=== PATIENT | female | born 1980 | race Caucasian/White ===

== ENCOUNTER 2019-03-08 17:43 | Observation (INO) | payer OTHER ==
--- NOTE | 2019-03-08 18:09 | ED ---
Neurological HPI - HPI Summary HPI Summary: Pt is a 38 y/o F presenting to the ED with a chief complaint of a neurological deficit. She states she first experienced sx around 1500 when she noticed her vision was blurry and she was seeing spots. This subsided, but she then could not understand what people were saying on TV, noticed that she couldnt spell when she was trying to text, and her words were not coming out properly. This confusion lasted for approximately 1 hour, and was accompanied by extreme anxiety. Her called EMS from work, went home, and they arrived and took approximately an hour or more to get to the ED. In the ambulance on the way here , she developed a burning headache behind the R eye that is still present. She denies any weakness or numbness during the entire event. She has hx of migraines, but not ones that have developed or presented like this. - History of Current Complaint Chief Complaint: EDNeurologicalDeficit Stated Complaint: WEAKNESS PER FAMILY Time Seen by Provider: 03/08/19 17:53 Last Known Well Date: 1449 Hx Obtained From: Patient Onset/Duration: Sudden Onset, Started hours ago, Still Present Timing: Constant Onset Severity: Moderate Current Severity: Moderate Headache Location: Diffuse (Right) Pain Intensity: 6 Pain Scale Used: 0-10 Numeric Character: Impaired Speech, Confusion, Visual Changes Aggravating: Unknown Alleviating: Unknown Associated Signs and Symptoms: Positive: Visual Changes, Headache, Confusion, Impaired Speech, Anxiety. Negative: Weakness - Allergy/Home Medications Allergies/Adverse Reactions: Allergies Allergy/AdvReac Type Severity Reaction Status Date / Time No Known Allergies Allergy Verified 03/08/19 18:01 Home Medications: Home Medications Ibuprofen 600 mg PO Q6HR PRN 03/08/19 [History Confirmed 03/08/19] PMH/Surg Hx/FS Hx/Imm Hx Previously Healthy: Yes Endocrine/Hematology History: Denies: Hx Diabetes Cardiovascular History: Denies: Hx Hypertension Neurological History: Reports: Hx Migraine Infectious Disease History: No Infectious Disease History: Denies: Traveled Outside the [place] in Last 30 Days - Family History Known Family History: Negative: Cardiac Disease - Social History Alcohol Use: Weekly Hx Substance Use: No Substance Use Type: Reports: None Hx Tobacco Use: No Smoking Status (MU): Never Smoked Tobacco Review of Systems Positive: Blurred Vision, Other - seeing spots Neurological: Other - confusion, Positive: Headache, Slurred Speech. Negative: Weakness, Numbness Positive: Anxious All Other Systems Reviewed And Are Negative: Yes Physical Exam - Summary Physical Exam Summary: Appearance: Well appearing, no pain distress Skin: warm, dry, reflects adequate perfusion Head/face: normal Eyes: EOMI, JOSE ENRIQUE ENT: normal Neck: supple, non-tender Respiratory: CTA, breath sounds present Cardiovascular: RRR, pulses symmetrical Abdomen: non-tender, soft Musculoskeletal: normal, strength/ROM intact Neuro: normal, sensory motor intact, A&Ox3 Triage Information Reviewed: Yes Vital Signs On Initial Exam: Initial Vitals Temp Pulse Resp BP Pulse Ox 99.7 F 88 20 132/73 100 03/08/19 17:54 03/08/19 17:54 03/08/19 17:54 03/08/19 17:54 03/08/19 17:54 Vital Signs Reviewed: Yes - Philly Coma Scale Best Eye Response: 4 - Spontaneous Best Motor Response: 6 - Obeys Commands Best Verbal Response: 5 - Oriented Coma Scale Total: 15 Diagnostics - Vital Signs Vital Signs Temp Pulse Resp BP Pulse Ox 03/08/19 17:54 99.7 F 88 20 132/73 100 - Laboratory Result Diagrams: 03/08/19 18:25 03/08/19 18:25 Lab Statement: Any lab studies that have been ordered have been reviewed, and results considered in the medical decision making process. - Radiology CXR Radiology Interpretation Completed By: ED Physician Summary of Radiographic Findings: No acute process. Pending official radiology report. - CT Brain CT CT Interpretation Completed By: Radiologist Summary of CT Findings: No acute intracranial abnormality. ED physician has reviewed this report. CTA Head/Neck CT Interpretation Completed By: Radiologist Summary of CT Findings: No acute findings. ED physician has reviewed this report. 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: Both Correctly Best Gaze (Only Horizontal Eye Movement): Normal Visual Field Testing: No Visual Loss Facial Paresis-Pt to Smile & Close Eyes or Grimace Symmetry: Normal/Symmetrical Motor Function - Right Arm: No Drift-Holds 10 Seconds Motor Function - Left Arm: No Drift-Holds 10 Seconds Motor Function - Right Leg: No Drift-Holds 10 Seconds Motor Function - Left Leg: No Drift-Holds 10 Seconds Limb Ataxia-Must be out of Proportion to Weakness Present: Absent Sensory (Use Pinprick to Test Arms/Legs/Trunk/Face): Normal Best Language (Describe Picture, Name Items): No Aphasia Dysarthria (Read Several Words): Normal Extinction and Inattention: No Abnormality Total Score: 0 Course/Dx - Course Course Of Treatment: Pt is a 38 y/o F who presents to the ED brought in by EMS for neurological sx. Her sx include blurry vision, seeing spots, confusion, inability to read/type/speak, extreme anxiety, and headache. She denies numbness or weakness in any of her extremities. The pt's physical exam is normal. Her GCS is 15 and her NIH stroke scale is 0. Bloodwork/UA obtained. Brain CT shows no acute intracranial abnormality. I spoke with Dr. Millan who agreed with the plan to do a CTA Head/Neck, and recommended admission for further workup. She will be admitted to [facility] under Dr. Gifford with dx including transient global amnesia, rule out TIA, and migraine. - Differential Dx Differential Diagnoses Neuro: Positive: Anxiety, Cerebrovascular Accident, Intracranial Bleed, Metabolic Abnormality, Migraine, Transient Ischemic Attack - Diagnoses Provider Diagnoses: TGA (transient global amnesia), Migraine - Critical Care Time Critical Care Time: 75-104 min Discharge - Sign-Out/Discharge Documenting (check all that apply): Patient Departure - Discharge Plan Condition: Stable Disposition: ADMITTED TO [facility] Referrals: No Primary Care Phys,NOPCP [Primary Care Provider] - - Billing Disposition and Condition Condition: STABLE Disposition: Admitted to [facility] - Attestation Statements Document Initiated by Roberto: Yes Documenting Scribe: Sigrid Reynolds Provider For Whom Roberto is Documenting (Include Credential): Fidel Kenney MD. Scribe Attestation: Sigrid Waldrop scribed for Fidel Kenney MD. on 03/08/19 at 2034. Scribe Documentation Reviewed: Yes Provider Attestation: The documentation as recorded by the Sigrid loera accurately reflects the service I personally performed and the decisions made by , Fidel Kenney MD. Status of Scribe Document: Viewed Consult Consult: 1830 - I spoke with Dr. Millan who agreed with the plan to do a CTA Head/Neck, and recommended admission for further workup. 2013 - I spoke with Dr. Gifford who will be accepting the pt to [facility].
[2019-03-08 18:40] LABS: ABS Eosinophils 0.2 10^3/ul (0-0.6); ABS Lymphocytes 1.3 10^3/ul (1.0-4.8); ABS Monocytes 0.5 10^3/ul (0-0.8); Eosinophil % 2.3 %; Hematocrit 33 % (35-47); Lymphocyte % 19.2 %; Mean Corpuscular HGB Conc 33 g/dL (31-36); Mean Corpuscular Hemoglobin 27 pg (27-31); Mean Corpuscular Volume 82 fL (80-97); Mean Platelet Volume 8.2 fL (7.4-10.4); Nucleated Red Blood Cells % 0.1; Platelet Count 298 10^3/uL (150-450); Red Blood Count 4.02 10^6 /uL (3.70-4.87); Red Cell Distribution Width 16 % (10.5-15)
[2019-03-08 18:49] LABS: Urine Appearance Clear; Urine Bacteria Absent (Absent); Urine Bilirubin Negative (Negative); Urine Blood Negative (Negative); Urine Color Straw; Urine Glucose Negative (Negative); Urine Ketones Negative (Negative); Urine Nitrite Negative (Negative); Urine Protein Negative (Negative); Urine Red Blood Cell Trace(0-2/hpf) (Absent); Urine Specific Gravity 1.006 (1.010-1.030); Urine Squamous Epithelial Cell Present (Absent); Urine Urobilinogen Negative (Negative); Urine White Blood Cell Trace(0-5/hpf) (Absent)
[2019-03-08 18:49] LABS: Activated Partial Thrombo Time 31.8 seconds (26.0-36.3); INR 0.92 (0.82-1.09)
[2019-03-08 18:56] LABS: ALT 9 U/L (7-52); AST 12 U/L (13-39); Albumin 4.2 g/dL (3.2-5.2); Albumin/Globulin Ratio 1.6 (1-3); Alkaline Phosphatase 49 U/L (34-104); Anion Gap 6 mmol/L (2-11); BUN/Creatinine Ratio 17.3 (8-20); Blood Urea Nitrogen 13 mg/dL (6-24); CO2 Carbon Dioxide 24 mmol/L (22-32); Chloride 109 mmol/L (101-111); EGFR African American 105.2 (>60); Globulin 2.6 g/dL (2-4); Glucose 123 mg/dL (70-100); Potassium 4.2 mmol/L (3.5-5.0); Sodium 139 mmol/L (135-145); Total Protein 6.8 g/dL (6.4-8.9)
[2019-03-08 19:02] LABS: HCG Pregnancy < 0.60 mIU/mL
[2019-03-08] MEDS ORDERED: Iohexol 350* (CONTRAST) 500 ML MDV IV ONE (19:10)
[2019-03-08] MEDS ORDERED: Butalb/Acetamin/Caff TAB* 1 TAB PO ONE (20:43)
[2019-03-08] MEDS ORDERED: Ondansetron INJ* 2 MG/ML VIAL IV PRN (21:37)
[2019-03-08] MEDS ORDERED: Acetaminophen TAB* 325 MG PO PRN (21:38)
[2019-03-08] MEDS ORDERED: Ibuprofen TAB* 400 MG PO PRN (21:38)
[2019-03-08 22:12] LABS: C Reactive Protein 3.21 mg/L (<8.01)
[2019-03-08 22:26] LABS: TSH (Thyroid Stimulating Horm) 1.44 mcIU/mL (0.34-5.60)
[2019-03-08 22:33] LABS: % Iron Saturation 8 % (15-55); Iron 32 ug/dL (50-212); Total Iron Binding Capacity 381 mcg/dL (250-450); Transferrin 272 mg/dL (203-362)
[2019-03-08 22:55] LABS: Ferritin 4.6 ng/mL (11-307)
[2019-03-08 22:59] LABS: Folate 6.98 ng/mL (>3.99)
[2019-03-08 23:08] LABS: Erythrocyte Sed Rate 7 mm/Hr (0-19)
[2019-03-09] MEDS ORDERED: Docusate CAP* 100 MG PO PRN (00:14)
--- NOTE | 2019-03-09 00:52 | HP ---
HISTORY AND PHYSICAL: DATE OF ADMISSION: 03/08/19 CHIEF COMPLAINT: Blurriness of vision with confusion. HISTORY OF PRESENT ILLNESS: The patient is a 38-year-old lady with a history of migraines and no other documented past medical history, who mentions that around 3 o'clock in the afternoon, her vision became blurry and it appeared as if she was seeing spots in her visual field. This had then subsided , however, she noticed that she was unable to understand the conversation that she was hearing on TV and moreover, she was not able to spell words when she tried to text. She mentioned that she felt confused and lasted for approximately about an hour which understandably made her extremely anxious. Her then called EMS from his work and then went home and he and EMS arrived approximately an hour or more to get to the ED. En route in the ambulance, she then developed a burning headache in that she mentioned it was pronounced behind her right eye, but denied any weakness, numbness during the entire event. In the ED, she mentioned that the pain then is spreading towards the front of her forehead down towards her bilateral cheeks and she describes this as a burning sensation. She further narrates a history that 4 years ago, a similar thing happened to her where she mentioned that she had a headache, got somewhat confused as well. She mentioned that she mentioned something to her PCP, but has not recurred and hence this has not been thoroughly investigated. She denied other events in her life that were similar. PAST MEDICAL HISTORY AND SURGICAL HISTORY: Migraines that she treats p.r.n. with [id number] such as Tylenol, Excedrin, ibuprofen, etc. No other past medical nor surgical history. HOME MEDICATIONS: 1. P.r.n. [id number] Tylenol. 2. Excedrin. 3. Aspirin. ALLERGIES: NKDA. FAMILY HISTORY: Vertigo, her sister and aunt. Denies any history of diabetes, hypertension, cardiac disease, cancer in the family. SOCIAL HISTORY: She is engaged and lives with a live-in partner. She has a 12 - year-old daughter who is currently healthy. She denies any previous smoking history, illicit drug use, nor alcohol abuse. REVIEW OF SYSTEMS: On review of systems, she currently denies any visual changes. The patient complains of headache, more pronounced in the right eye, pain that has since spread around her frontal area as well as her bilateral maxillary area and described as burning. No dizziness. Denies any recent fevers, chills. She did have some nausea, but no longer. Denied any vomiting. Denied any abdominal pain, diarrhea, constipation, pain and/or increased frequency on urination, myalgias, arthralgias, throat pain, or new skin lesions. The rest of the 14-point review of systems are otherwise unremarkable. PHYSICAL EXAMINATION GENERAL APPEARANCE: The patient is awake, alert, and oriented x3, not in acute distress. VITAL SIGNS: She has the most recent vital signs of records, blood pressure of 113/73, 68 beats per minute heart rate, 19 per minute respiratory rate, saturating at 98% on room air. HEENT: Normocephalic, atraumatic. PERRLA. Extraocular muscles intact. Negative for icterus. Moist oral mucosa. Negative throat erythema. NECK: Soft, supple with no cervical lymphadenopathy. No JVD. LUNGS: Chest clear to auscultation bilaterally. Good air entry. No wheezes, rales, or rhonchi. HEART: S1, S2 within normal limits. Regular rate and rhythm. No murmurs, rubs , or gallops. ABDOMEN: Soft, nondistended, nontender. Normoactive bowel sounds x4 quadrants. EXTREMITIES: No cyanosis, clubbing, or edema. PSYCHIATRIC: No active psychosis, depression, suicidal or homicidal ideation. SKIN: Warm to touch. DIAGNOSTIC STUDIES/LAB DATA: Most recent pertinent laboratory drawn show CBC with WBC and platelets that were found to be normal. H and H of 11 and 33 respectively. INR of 0.92. APTT of 31.8. Sodium, potassium, BUN, and creatinine were all found to be normal along with the rest of her LFTs which were either normal or low. Beta- HCG is less than 0.60. UA shows specific gravity of 1.006, negative for pyuria, positive for leukocyte esterase and squamous epithelial cells. Brain CT shows no acute disease/no intracranial abnormality. Head and neck CTA shows no acute disease process with no evidence of carotid artery stenosis, occlusion, or dissection. Chest x-ray appears to me to have no acute cardiopulmonary issue. EKG is currently pending and has been ordered on her admission. ASSESSMENT AND PLAN: The patient is a 38-year-old lady with history of migraines, being admitted today for headache that is accompanied by transient visual problems as well as transient confusion. 1. Migraine with aura. She likely does have migraine with aura given that this is not the first time that she mentions that she has had it and mentions that a similar situation to what she described above transpired 4 years ago. However, since the event did not recur, no other further workup was done and has since been forgotten on followup until today. It is likely that her transient global amnesia usually associated with migraines and her visual problems could be due to aura. We will await any further recommendations from Neurology. I do not believe that she has any form of temporal arteritis given she does not have any history herself nor any family history of autoimmune diseases nor does she has any tender temporal area. We will obtain ESR as well as sed rate. It is possible although less likely that she is presenting with transient ischemic attack and hence we will admit her for a baseline MRI as well as a 2D echo with bubble study to further evaluate her rather atypical presentation. Although unlikely from data and history gathered above, MRI would help to see if there is any evidence of white matter disease such as MS. 2. Nausea. We will place the patient on Zofran p.r.n. She mentions that she is no longer nauseated but will continue watchful waiting. 3. Pain/headache. We will place the patient on p.r.n. Tylenol as well as p.r.n. ibuprofen. 4. Anemia. She is still a woman of childbearing age; however, she is not currently and possibly may be related to menses. We will check iron studies, B12, and folate levels. 5. DVT prophylaxis: She is at low risk for DVT prophylaxis. She has been advised and encouraged to ambulate ad libitum. We will place her on ARELI stockings as ordered. 6. Disposition. As above. [id number]/[facility] #: [id number] CHERYLE
[2019-03-09 06:23] LABS: ABS Eosinophils 0.2 10^3/ul (0-0.6); ABS Lymphocytes 2.1 10^3/ul (1.0-4.8); ABS Monocytes 0.5 10^3/ul (0-0.8); ABS Neutrophils 3.5 10^3/ul (1.5-7.7); Eosinophil % 3.3 %; Hematocrit 32 % (35-47); Hemoglobin 10.9 g/dL (12.0-16.0); Lymphocyte % 33.4 %; Mean Corpuscular HGB Conc 34 g/dL (31-36); Mean Corpuscular Hemoglobin 28 pg (27-31); Mean Corpuscular Volume 82 fL (80-97); Mean Platelet Volume 8.2 fL (7.4-10.4); Platelet Count 288 10^3/uL (150-450); Red Blood Count 3.95 10^6 /uL (3.70-4.87); Red Cell Distribution Width 17 % (10.5-15); White Blood Count 6.4 10^3/uL (3.5-10.8)
[2019-03-09 06:41] LABS: Albumin 3.8 g/dL (3.2-5.2); Albumin/Globulin Ratio 1.5 (1-3); BUN/Creatinine Ratio 15.1 (8-20); Calcium 8.6 mg/dL (8.6-10.3); EGFR African American 108.5 (>60); EGFR Non-African American 89.7 (>60); Globulin 2.5 g/dL (2-4); HDL Cholesterol 52.9 mg/dL; Phosphorus 3.3 mg/dL (2.5-5.0); Potassium 3.9 mmol/L (3.5-5.0); Total Bilirubin 0.6 mg/dL (0.2-1.0); Total Protein 6.3 g/dL (6.4-8.9)
--- NOTE | 2019-03-09 07:41 | PN ---
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 No nausea, no vomiting, no CP SOB or new neurological sx Objective Active Medications: Acetaminophen (Tylenol Tab*) 650 mg PO Q6H PRN PRN Reason: Pain/Fever Ascorbic Acid (Vitamin C Tab*) 500 mg PO BID BLANCA Docusate Sodium (Colace Cap*) 200 mg PO DAILY PRN PRN Reason: CONSTIPATION Ferrous Sulfate (Ferrous Sulfate Tab*) 325 mg PO BID BLANCA Ibuprofen (Motrin Tab*) 400 mg PO Q6H PRN PRN Reason: Pain/Fever Last Admin: 03/08/19 23:14 Dose: 400 mg Ondansetron HCl (Zofran Inj*) 4 mg IV Q6H PRN PRN Reason: NAUSEA/VOMITING Vital Signs - 8 hr 03/09/19 03:10 Temperature 98.1 F Pulse Rate 57 Respiratory 16 Rate Blood Pressure 95/57 (mmHg) O2 Sat by Pulse 100 Oximetry Oxygen Devices in Use Now: None Appearance: Pleasant well appearing woman Eyes: No Scleral Icterus, PERRLA Ears/Nose/Mouth/Throat: NL Teeth, Lips, Gums, Clear Oropharnyx Neck: NL Appearance and Movements; NL JVP, Trachea Midline Respiratory: Symmetrical Chest Expansion and Respiratory Effort, Clear to Auscultation Cardiovascular: NL Sounds; No Murmurs; No JVD, RRR Abdominal: NL Sounds; No Tenderness; No Distention, No Hepatosplenomegaly Lymphatic: No Cervical Adenopathy Extremities: No Edema Skin: No Rash or Ulcers Neurological: Alert and Oriented x 3, NL Sensation, NL Muscle Strength and Tone Result Diagrams: 03/09/19 05:52 03/09/19 05:52 Assess/Plan/Problems-Billing Assessment: 38 yo healthy female admitted for what appears to be complex migraine, 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, 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 - Patient Problems (1) Migraine Current Visit: Yes Status: Acute Code(s): G43.909 - MIGRAINE, UNSP, NOT INTRACTABLE, WITHOUT STATUS MIGRAINOSUS SNOMED Code(s): 35115674 Comment: -Hx of migraines, never with aura -Not on rx abortive tx, only Excederin Migraine, never on PPX tx -Mild band like GORDON currently, trial toradol -Awaiting MRI and neuro, likely able to d/c to home if both of these are normal (2) Anemia Current Visit: Yes Status: Acute Code(s): D64.9 - ANEMIA, UNSPECIFIED SNOMED Code(s): 098903153 Comment: -mild, CTM (3) DVT prophylaxis Current Visit: Yes Status: Acute Code(s): Z29.9 - ENCOUNTER FOR PROPHYLACTIC MEASURES, UNSPECIFIED SNOMED Code(s): 578308305 (4) Full code status Current Visit: Yes Status: Acute Code(s): Z78.9 - OTHER SPECIFIED HEALTH STATUS SNOMED Code(s): 048635145 Status and Disposition: OBV
[2019-03-09] MEDS ORDERED: Ascorbic Acid TAB* 500 MG PO SCH (09:00)
[2019-03-09] MEDS ORDERED: Ferrous Sulfate TAB* 325 MG PO SCH (09:00)
--- NOTE | 2019-03-09 10:01 | ECHO ---
*[facility]* [place] [address] Fax #: [phone] Transthoracic Echocardiogram Patient: Shaun, Height: 65 in / Nani 165.1 cm : 1980 Weight: 129.7 lb / Study Date: 03/09/2019 59 kg Age: 38 BP: 95 / 57 Gender: F BMI/BSA: 21.6 kg/m^2 HR: 61 bpm / 1.65 m^2 *Press Catcher: * Anne Prado RDCS RN *Referring Physician: * Rip Gifford *Reading Physician: * Faustino Miller MD Indications: TIA. History: PMH: Migraines, cardiac murmur in childhood Conclusions Summary: 1. Left ventricle: The cavity size is normal. Wall thickness is normal. Systolic function is normal. The estimated ejection fraction is 55-60%. 2. Atrial septum: A moderate number of bubbles appeared in the left atrium between beats 3 and 4 of the bubble study. 3. Mitral valve: There is trace regurgitation. 4. Tricuspid valve: There is trace regurgitation. 5. No previous echocardiogram available. Study data: Transthoracic echocardiogram. Procedure: Transthoracic echocardiography was performed. Image quality was fair. Intravenous agitated saline was administered. A bubble study was performed. Image 1. Complete 2D, spectral Doppler, and color flow Doppler. Location: Procedure room. Patient status: Inpatient. Patient room number: 442-01. Rhythm: Normal sinus rhythm. Findings Left ventricle: The cavity size is normal. Wall thickness is normal. Systolic function is normal. The estimated ejection fraction is 55-60%. Wall motion is normal; there are no regional wall motion abnormalities. Left ventricular diastolic function parameters are normal. Right ventricle: The cavity size is normal. Systolic function is low normal. Left atrium: The atrium is normal in size. Right atrium: The atrium is normal in size. Atrial septum: A moderate number of bubbles appeared in the left atrium between beats 3 and 4 of the bubble study. Mitral valve: The leaflets are mildly thickened. There is no evidence of stenosis. There is trace regurgitation. Aortic valve: Not well visualized. The leaflets are mildly thickened. There is no evidence of stenosis. There is no regurgitation. Tricuspid valve: The valve is structurally normal. There is no evidence of stenosis. There is trace regurgitation. Pulmonic valve: Not well visualized. There is no evidence of stenosis. There is trace regurgitation. Aorta: Aortic root: The aortic root is not dilated. Ascending aorta: The ascending aorta is not dilated. Aortic arch: The aortic arch is not dilated. Pericardium: There is no pericardial effusion. Pulmonary arteries: Not well visualized. Systemic veins: Inferior vena cava: The vessel is normal in size. The respirophasic diameter changes are in the normal range (>= 50%). Measurements Left ventricle Value Ref Right atrium continued Value Ref BRIAN, LAX 4.1 cm 3.8 - SI dim, ES, A4C 3.8 cm 3.4 - 5.3 5.2 SI dim/bsa, ES, 2.3 cm/m^2 1.9 - 3.1 ESD, LAX 2.9 cm 2.2 - A4C 3.5 FS, LAX 30 % 27 - 45 Aortic valve Value Ref PW, ED, LAX 0.9 cm 0.6 - Peak v, S 1.2 m/sec --------- 0.9 VTI, S 26.4 cm --------- IVS/PW, ED 0.97 -------- Mean grad, S 3.5 mm Hg --------- PW/ID, ED 0.23 -------- Peak grad, S 5.8 mm Hg --------- E', lat missy, TDI (L) 0.2 cm/sec >=10.0 LVOT/AV, VTI 0.85 -- ------- E/e', lat missy, 5 -------- ratio TDI E', med missy, TDI (L) 0.1 cm/sec >=7.0 Mitral valve Value Re f E/e', med missy, 8 -------- Peak E 1.06 m/sec ----- ---- TDI Peak A 0.69 m/sec --------- Decel time 179 ms --------- LVOT Value Ref Peak grad, D 4.5 mm Hg --------- Peak mauro, S 1 m/sec -------- Peak E/A ratio 1.54 --------- VTI, S 22.4 cm -------- Peak grad, S 4 mm Hg -------- Pulmonic valve Value Ref Mean grad, S 2 mm Hg -------- Peak v, S 0.62 m/sec --------- Peak grad, S 1.5 mm Hg --------- Ventricular septum Value Ref IVS, ED 0.9 cm 0.6 - Aortic root Value Ref 0.9 Root diam 2.6 cm <3.3 Right ventricle Value Ref Ascending aorta Value Ref BRIAN, LAX 2.3 cm -------- AAo AP diam, S 2.5 cm --------- BRIAN major ax, A4C (L) 2.2 cm 5.9 - 8.3 Aortic arch Value Ref Arch diam 1.9 cm --------- Left atrium Value Ref LA ID 2.6 cm -------- Decending aorta Value Ref SI dim ES, LAX 2.6 cm -------- Crystal peak mauro 1.21 m/sec --------- ML dim, A4C 2.8 cm -------- SI dim, A4C 4.9 cm -------- Inferior vena cava Value Ref Vol, ES, 2-p 39 ml -------- Diam 1.8 cm --------- Vol/bsa, ES, 2-p 24 ml/m^2 16 - 34 Right atrium Value Ref SI dim, ES 3.8 cm 3.4 - 5.3 ML dim, ES, A4C 2.7 cm 2.6 - 4.4 Legend: (L) and (H) jessi values outside specified reference range. Prepared and electronically signed by Faustino Miller MD 03/09/2019 10:00
[2019-03-09] MEDS ORDERED: Ketorolac INJ* 60 MG/2 ML VIAL IV PUSH ONE (11:25)
[2019-03-09] MEDS ORDERED: Ketorolac INJ* 30 MG/ML 1 ML VIAL IV PUSH ONE (12:00)
[2019-03-09 12:52] VITALS: BP 110/66
--- NOTE | 2019-03-09 15:53 | CONS ---
NEUROLOGY CONSULTATION NOTE: DATE OF CONSULT: 03/09/19 CONSULTING PROVIDER: Ann Cisse MD REASON FOR CONSULT: Headaches. CHIEF COMPLAINT: Headache and episode of confusion. HISTORY OF PRESENT ILLNESS: Ms. Nani Dunn is a 38-year-old right-handed female with history of migraine headache, who averages of 3-4 headaches a month , who had gradual onset of difficulty picking up objects. She was cleaning the house and had turned the TV on. She noticed that her vision was blotchy. She could not see parts of her visual field. This lasted for 20 minutes and gradually resolved. She was trying to watch TV then and rest and she noticed difficulty talking out loud. She reached out to get her phone and tried texting , but could not describe what she was feeling by text. This was followed by severe right retroorbital pain in the right eye. She had a similar event 4 years ago and that resolved with time, but at this time around, it is much worse as it lasted longer. She denied loss of consciousness. She did have symptoms of nausea and photophobia. She stated that she could not keep her eyes open during the EMS ride. She denied any Valsalva like maneuvers, exacerbating, or worsening her headaches. Coughing, straining or sneezing did not worsen the pain. She denied any double vision or blurry vision at this time. Her headache is 2/10 and is located in the right frontal temporal region. Her significant other, her boyfriend, stated that she described feeling amnestic, not knowing what happened for a period of 1 hour and was describing some slurring of her speech. She denied any recent stressors. She had a CT of the head completed on 03/08/19 that showed no evidence of acute intracranial abnormality. She had a CTA head and neck that showed no evidence of large vessel occlusion, aneurysm, or dissection. She had an MRI of the brain completed on 03/09/19 that showed no evidence of acute intracranial abnormality. PAST MEDICAL HISTORY: Migraine headaches. PAST SURGICAL HISTORY: No significant past surgical history. HOME MEDICATIONS: 1. PRN [id number] Tylenol. 2. Excedrin. 3. Aspirin. ALLERGIES: No known drug allergies. FAMILY HISTORY: Her sister and aunt suffer from vertigo. She denied any history of stroke or seizures. SOCIAL HISTORY: She lives with her boyfriend. She has a 12-year-old daughter who is healthy. She denied any drug use. She denied any marijuana use. She does drink alcohol occasionally. She recently went to [employer] over the weekend to celebrate her recent completion of graduate school. She may have had a few glasses of wine. REVIEW OF SYSTEMS: A 14-point review of system was obtained and otherwise negative except for what was mentioned in the HPI. PHYSICAL EXAM: Vitals: Temperature of 98.7, pulse is 62, respiratory rate of 18, oxygen saturation 100, blood pressure 110/66. General: A well-nourished, well- developed female, in no acute distress. Head: Normocephalic, atraumatic without any obvious abnormality. There is no superficial temporal artery tenderness or occipital notch tenderness. She has no jaw claudication. Eyes: Conjunctivae/corneas are clear. Funduscopic examination was performed and there is no evidence of blurred disc margin. Normal venous pulsation. Neck is supple and symmetrical, no carotid bruit. Cardiovascular: Regular rate and rhythm with normal S1, S2. Lungs: Clear to auscultation bilaterally. Extremities: Normal range of motion with no cyanosis. Skin: No skin lesions or laceration. Psych: Affect is broad and normal. Mood is easy to establish rapport. Neurological Examination: Mental status: Awake, alert and oriented to person, place, time, general circumstance. Speech and language including expression, naming, repetition, and comprehension were assessed and found to be normal. Cranial Nerves: Normal confrontation testing bilaterally. Pupils are mid range and reactive to light. Normal consensual response. Extraocular muscles are intact. No ptosis. Sensation is intact on forehead, cheeks, and jaw region bilaterally. No facial droop. She is able to hear throughout the history of process. Symmetrical palate elevation. Normal strength against resistant. Tongue is symmetric and midline with no atrophy or fasciculation. Motor Examination: No abnormal movements or pronator drift. Normal bulk and tone throughout. A 5/5 strength in the upper and lower extremities. Reflexes: Right/left, brachioradialis 2+/2+, biceps 2+/2+, triceps 2+/2+, patella 2+/2+ , ankle 2+/2+, plantar flexor/flexor. Sensation is intact to light touch throughout. Normal vibration and proprioception at the great toes. Coordination: Normal [id number] and rapid alternating movement. Gait and station, narrow based, no ataxia. LABORATORY DATA: WBC 6.4, hemoglobin 10, hematocrit 32, platelet count of 288. Sodium of 138, potassium 3.9, chloride of 110, carbon dioxide 21, BUN 11, creatinine 0.73. Urinalysis showed no evidence of pyuria, vitamin B12 of 461, folate 6.98, TSH 1.44. ASSESSMENT AND RECOMMENDATIONS: Ms. Nani Dunn is a 38-year-old female who presented with headache, amnesia, and scotomas. 1. Migraine headache with aura causing acute confusional migraine, which is a complex migraine spectrum - the patient is currently asymptomatic. She has no evidence of stroke or white matter demyelinating lesions on MRI. I do not suspect that she had a seizure. She has no cerebrovascular risk factors to suspect a TIA. However, if she has recurrence of the events, an EEG to rule out seizures could be considered. This is not a stroke or transient ischemic attack given the patient has no risk factors and no abnormal intracranial disease. RECOMMENDATIONS: Start magnesium 450 mg and riboflavin 100 mg daily for migraine headache prevention. If symptoms persist or she still has symptoms of headaches, then starting Imitrex at 50-100 mg right before the headache severity increases is recommended. I would be more than happy to follow up with her as an outpatient in 3-4 weeks to check on her migraine headaches and see if she needs to have an EEG done as an outpatient. Education and counseling was provided. All questions were answered to the best my abilities. [id number]/[facility] #: [id number] CHERYLE
--- NOTE | 2019-03-09 20:14 | DS ---
DISCHARGE SUMMARY: DATE OF ADMISSION: 03/08/19 DATE OF DISCHARGE: 03/09/19 PRIMARY CARE PROVIDER: None. She will be connected to the [facility]. NEUROLOGIST: Neurologist consulted during this hospitalization is Dr. Millan, who a referral has been placed for her to follow up in 3 to 4 weeks. PRIMARY DIAGNOSIS: Complex migraine. SECONDARY DIAGNOSES: Anemia and history of mild non-frequent migraines. MEDICATIONS ON DISCHARGE: 1. Magnesium oxide 400 mg p.o. daily 30 tablets with 1 refill. 2. Riboflavin 400 mg p.o. daily 30 tablets with 1 refill. 3. P.r.n. ibuprofen 600 mg. Changes on medication on this hospitalization include the addition of magnesium oxide and riboflavin. HISTORY OF PRESENT ILLNESS AND HOSPITAL COURSE: This is a 38-year-old healthy young woman who presented to the emergency room on 03/08/19 with complaint of 1- day of headache and acute onset of word finding difficulties and confusion, lasting 20 to 30 minutes, but then subsided. The patient reports that she has a history of migraine headaches approximately 3 to 4 per month with unknown triggers possibly more around her menstrual period, although she cannot be certain if this is other times of the month where she also has triggered migraines, although typically her migraines are right-sided, behind the eye and resolved with Excedrin Migraine. The patient reports that she started having the migraine 1 day prior to admission, but then just acutely while she was cooking something in the kitchen, she got acutely confused, had word finding difficulties and felt that she was unable to interpret, understand text messages and had delayed process in understanding of the people around her. She presented to the emergency room where her vital signs were normal, her labs were normal with the exception of mild anemia with hemoglobin of 11 and normal BMP and LFTs, negative and normal TSH. Imaging was done in the ER including stat head CT that was negative for acute intracranial pathology. The patient was admitted to the hospital for observation given acute onset of new neurologic symptoms that had resolved by the time she got to the ER and for further workup in the unlikely event this was TIA or other neurologic cause. Hospital course by problem is as follows: 1. New neurologic deficits. The patient had a normal neurologic exam throughout her hospital stay. She did get an MRI that showed no evidence of TIA. She had an echocardiogram done that showed normal ejection fraction. It did show a moderate number of bubbles that appeared in the left atrium between beats 3 and 4 of the bubble study to suggest possible PFO versus ASD, although this was not commented on officially by Cardiology. EKGs, normal sinus rhythm and a CTA was done that showed no vascular abnormalities. The patient was seen by Neurology, who felt that her symptoms are most consistent with a complex migraine with aura and this is the first time that she has had this kind of event. They discussed abortive and prophylactic treatments for migraine and given her infrequent migraine headaches, it is reasonable to start on prophylaxis with magnesium and riboflavin and she will follow up with Neurology in upcoming month to 6 weeks. 2. Anemia. The patient has mild iron deficient anemia consistent with anemia in childbearing age and menses. She is advised to take p.r.n. ferrous sulfate. LABS AND STUDIES OBTAINED DURING THIS HOSPITALIZATION: White blood cell count 6.4, hemoglobin 10.9, hematocrit 32, platelets 288. Sodium 138, potassium 3.9, chloride 110, carbon dioxide 21, BUN 11, creatinine 0.73, glucose 102. Imaging: Noncontrast head CT, no acute intracranial pathology. Chest x-ray, no active cardiopulmonary disease. Head CTAs, no vascular abnormalities. EKGs , normal sinus rhythm and no active signs of ischemia. Brain MRIs, normal brain. A transthoracic echocardiogram shows normal ejection fraction, no regional wall motion abnormalities and some bubbles in left atrium and bubble study suggestive of possible small AST versus PFO. ITEMS TO FOLLOW UP ON AFTER DISCHARGE: 1. Complex migraines. The patient had noncomplex migraines prior to this hospitalization and presented with migraine with aura with transient neurologic deficits. If these persists, we may need to step up abortive or prophylactic therapy for migraines. At this time, we will hold on initiating triptan. 2. Anemia. Can take p.r.n. ferrous sulfate. 3. ? PFO versus ASD. This is likely congenital and not contributing to her current presentation and can be auditory problem list moving forward. PHYSICAL EXAM ON DAY OF DISCHARGE: As noted per progress note. Unremarkable for mild non-functionally limiting headache. CONSULTANTS DURING THIS HOSPITALIZATION: Included Neurology. DISPOSITION AT THE TIME OF DISCHARGE: Stable to discharge to home. TIME SPENT: Thirty five minutes was spent in planning of this discharge with over half of that was spent directly at the bedside of the patient providing direct patient care. Plan of care was discussed with the patient and her significant other, they understand, have no further questions. They are instructed to return to the hospitalist if any new symptoms or worsening symptoms appear. If there are any questions about the care of this patient during this hospitalization, please do not hesitate to reach out. [id number]/[facility] #: [id number] CHERYLE
== END 2019-03-09 14:52 | disposition home or self-care (01) ==
LOC: ED 17:43 → MEDTELE 21:33
PROVIDERS: ADMIT Student in an Organized Health Care Education/Training Program; ATTEND Internal Medicine
DX: G43.909 Migraine, unspecified, not intractable, without status migrainosus (principal); D64.9 Anemia, unspecified; R41.0 Disorientation, unspecified; H53.8 Other visual disturbances; Z79.82 Long term (current) use of aspirin; F41.9 Anxiety disorder, unspecified
CPT/HCPCS: 36415; 70450; 70496; 70498; 70551; 71045; 80053; 80061; 81003; 81015; 82607; 82728; 82746; 83036; 83540; 83550; 83605; 83735; 83921; 84100; 84443; 84702; 85025; 85610; 85652; 85730; 86140; 87086; 93005; 93306; 96374; 99284; A9270-GY; G0378; J1885; Q9967